=== PATIENT | female | born 1995 | race Caucasian/White ===

== ENCOUNTER 2016-10-12 23:35 | Emergency (ER) | payer OTHER ==
--- NOTE | ~2016-10-12 | ER ---
PATIENT'S NAME: PIPPA [facility] AGE: 21 Y [address] ROOM: [place] [address] LOCATION: [facility] ADMIT DATE: 10/12/2016 ER/Outpatient Report DISCHARGE DATE: 10/13/2016 FAMILY PHYSICIAN: PHYSICIAN, NO ATTENDING PHYSICIAN: Cassandra Jama TIME OF EVALUATION: Admission date and time documented in the medical record. I saw the patient at 2355 hours. CHIEF COMPLAINT: Nausea, vomiting, low back and low abdominal pain. HISTORY OF PRESENT ILLNESS: The patient is a 21-year-old female, who presented to the emergency room with nausea and vomiting. She has low back pain and low abdominal pain. Diagnosed with PID. She is on Flagyl and Cipro. Started having nausea with vomiting today. She was started on Zofran. Continues to have nausea and vomiting and presented to the emergency room for evaluation. HOME MEDICATIONS: See attached medication list. ALLERGIES: NONE. SOCIAL HISTORY: Nonsmoker. Nondrinker. SIGNIFICANT PAST MEDICAL HISTORY: Negative. PAST SURGICAL HISTORY: Operations: Tonsillectomy and adenoidectomy. REVIEW OF SYSTEMS: All systems reviewed by me are negative with the exception of those discussed in the history of present illness. PHYSICAL EXAMINATION: VITAL SIGNS: Temperature 99.1, tympanic; pulse 83; respiratory rate 16; blood pressure 122/60; and O2 saturation on room air is 98%. HEAD: Normocephalic. EYES, EARS, NOSE, THROAT: Clear. Mucous membranes moist. NECK: Negative. PATIENT'S NAME: PIPPA [facility]ER [facility] AGE: 21 Y [address] ROOM: [place] [address] LOCATION: [facility] ADMIT DATE: 10/12/2016 ER/Outpatient Report DISCHARGE DATE: 10/13/2016 FAMILY PHYSICIAN: PHYSICIAN, NO ATTENDING PHYSICIAN: Cassandra Jama LUNGS: Clear. HEART: Regular. ABDOMEN: Soft. Some mild tenderness in the lower abdomen. No true guarding or rigidity. No rebound tenderness. No distention. Active bowel tones. No organomegaly or abnormal mass palpable. No CVA tenderness. EXTREMITIES: Intact. NEUROVASCULAR: Intact. SKIN: Pale. No cyanosis. No erythema. LABORATORY DATA: Procalcitonin was less than 0.05. Lactate was 1.2. Amylase and lipase were normal. CPK was 57. CMS was normal except for a slightly low potassium of 3.4, low CO2 content of 20, elevated creatinine of 3.1, and low GFR of 19. The CRP was 0.62. Lactate was 1.2. Sedimentation rate was 10. Urine showed 0 to 2 whites, 10-20 reds, 10-20 epithelial cells, and a few bacteria per high- powered field. Negative nitrite and did have elevated protein at 100. White count was 11,300, 66 segs, 21 lymphs, and 12 monos. Hemoglobin is 14.5, hematocrit 43.8, and platelet count is 238,000. I did review the patient's ultrasound of the kidneys and pelvis. Both kidneys and pelvic ultrasound were normal. This ultrasounds were done about 1600 hours this afternoon. EMERGENCY DEPARTMENT COURSE: I did start the patient on IV normal saline, gave her 2 L here in the emergency department. Gave her Zofran 8 mg IV in the emergency department for nausea and vomiting; gave her Phenergan 50 mg IM in the emergency room for nausea and vomiting; and gave her Reglan 10 mg IV in the emergency room for nausea and vomiting. Gave her fentanyl for pain. IMPRESSION: Nausea and vomiting with history of pelvic inflammatory disease, currently on treatment. PLAN: The patient dismissed to home. Observation. Activity as tolerated. Continue present home medications and care. Phenergan tablets or suppositories as needed for nausea and vomiting. Percocet as needed for pain. Clear liquid diet for 24 hours, and advance diet as tolerated thereafter. Follow up with personal physician tomorrow for followup exam. Discussion ensued with the patient concerning my findings and recommendations, she understands. CASSANDRA JAMA MD PATIENT'S NAME: PIPPA RADER [facility] AGE: 21 Y [address] ROOM: [place], [place] [address] LOCATION: [facility] ADMIT DATE: 10/12/2016 ER/Outpatient Report DISCHARGE DATE: 10/13/2016 FAMILY PHYSICIAN: PHYSICIAN, NO ATTENDING PHYSICIAN: Cassandra Jama SDS/modl /[id number] d: 10/13/16 1021 t: 10/13/16 1823, OUTPATIENT REPORT
[2016-10-13 00:37] LABS: BASOPHIL # 0.1 K/uL (0.0-0.2); BASOPHIL % 0.4 %; EOSINOPHIL # 0.1 K/uL (0.0-0.5); EOSINOPHIL % 0.4 %; HEMATOCRIT 43.8 % (33.0-46.0); HEMOGLOBIN 14.5 g/dL (11.0-15.0); IMMATURE GRANULOCYTE % 0.2 %; LYMPHOCYTE # 2.3 K/uL (0.8-4.0); LYMPHOCYTE % 20.7 %; MCH 27.9 pg (27.0-34.0); MCHC 33.1 gm/dL (32.0-36.5); MCV 84.2 fl (83.0-98.0); MONOCYTE # 1.4 K/uL (0.0-1.0); MONOCYTE % 12.1 %; MPV 9.5 fl (9.4-12.4); NEUTROPHIL # (ANC) 7.5 K/uL (1.8-7.8); NEUTROPHIL % 66.2 %; NRBC % 0 /100WBC (0-0.00); PLATELET COUNT 238 K/uL (150-450); RDW-CV 12.7 % (11.9-14.6); WBC 11.3 K/uL (4.0-11.0)
[2016-10-13 00:55] LABS: ALBUMIN 4.3 gm/dL (3.5-5.0); ANION GAP 17.4 (10.0-19.0); CALCIUM 9.2 mg/dL (8.5-10.5); CREATININE 3.1 mg/dL (0.5-1.1); POTASSIUM 3.4 mMol/L (3.7-5.1); TOTAL BILIRUBIN 0.6 mg/dL (0.0-1.5)
[2016-10-13 01:23] LABS: CPK 57 IU/L (21-215)
[2016-10-13 01:36] LABS: BILIRUBIN URINE NEGATIVE (NEGATIVE); BLOOD URINE 150 /UL (NEGATIVE); COLOR URINE YELLOW (YELLOW); GLUCOSE URINE NEGATIVE (NEGATIVE); KETONE URINE 5 mg/dL (NEGATIVE); LEUKOCYTES URINE NEGATIVE /UL (NEGATIVE); NITRITE URINE NEGATIVE (NEGATIVE); PROTEIN URINE 100 mg/dL (NEGATIVE); SPEC GRAVITY URINE 1.005 (1.003-1.035); TURBIDITY URINE CLEAR (CLEAR); UROBILINOGEN URINE NORMAL (NORMAL)
[2016-10-13 01:47] LABS: BACTERIA URINE FEW (NEGATIVE); WBC URINE 0-2 #/HPF (NEGATIVE)
== END 2016-10-13 02:55 | disposition disaster alternative care site (69) ==
LOC: GMED 23:35
PROVIDERS: Emergency Medicine
DX: R11.2 Nausea with vomiting, unspecified (principal); N73.9 Female pelvic inflammatory disease, unspecified; Z90.89 Acquired absence of other organs
CPT/HCPCS: J2405; J2550; J2765; J3010; J7030

== ENCOUNTER → 2016-10-12 | Outpatient (CLI) | payer OTHER ==
[~2016-10-12] MED LIST: FLONASE 50 MCG/16 GM NOSE; MOTRIN600 MG PO; NEXPLANON68 MG; NORCO 5-325 TA1 EACH PO
== END | disposition disaster alternative care site (69) ==
LOC: GRAD 14:59
DX: R10.2 Pelvic and perineal pain (principal); R79.89 Other specified abnormal findings of blood chemistry